=== PATIENT | female | born 1970 | race Caucasian/White ===

== ENCOUNTER 2020-06-02 15:53 | Emergency (ER) | payer OTHER, SELFPAY ==
[2020-06-02] VITALS (10 sets, daily range): BP systolic 107–160; BP diastolic 64–102; PULSE 65–98; RESP 16–30; TEMP 36.4–36.7; O2SAT 97–100
--- NOTE | ~2020-06-02 | XR_ITS ---
XR shoulder RT min 2V 06/02/2020 17:51 INDICATION: Shoulder dislocation post reduction PROCEDURE: His right shoulder COMPARISON: 06/02/2020 FINDINGS: Fracture, dislocation or subluxation is not identified. There is anatomic alignment post re duction. The soft tissues appear within normal limits. No foreign bodies are identified. IMPRESSION: 1: NO ACUTE BONE OR JOINT ABNORMALITY IDENTIFIED. Reviewed, dictated and finalized at location A.
--- NOTE | ~2020-06-02 | XR_ITS ---
EXAMINATION: XR shoulder RT min 2V DATE: 06/02/2020 16:08 INDICATION: Fall with right shoulder dislocation TECHNIQUE: AP and transscapular Y views of the right shoulder were obtained. COMPARISON: None FINDINGS: Anterior dislocation of the humeral head with respect to the glenoid. No evident fracture. Moderate a cromioclavicular osteoarthritis. Small amount of heterotopic ossification along the posterior rim of the acetabulum suggesting chronic labral degeneration. Visualized portions of the lungs are clear. IMPRESSION: Anterior right glenohumeral dislocation. Reviewed, dictated and finalized at location B.
--- NOTE | 2020-06-02 16:28 | ED.GENADULT ---
HPI - General Adult General Chief complaint: Extremity Injury, Upper Stated complaint: Fall Time Seen by Provider: 06/02/20 16:18 Source: patient History of Present Illness HPI narrative: Patient is a 50 y/o female complaining of right shoulder pain after a fall around 1:00 AM this morning. She states that she fell on gravel. She denies hitting her head or having LOC. She describes her pain as sharp and rates it as 10/10. Her pain radiates down upper arm to right elbow. She states that movement aggravates her pain. Related Data Home Medications Medication Instructions Recorded Confirmed alprazolam 06/02/20 06/02/20 fluoxetine mg 06/02/20 hydrocodone-acetaminophen 06/02/20 ibuprofen 06/02/20 omeprazole 06/02/20 ropinirole mg 06/02/20 simvastatin mg 06/02/20 Allergies Allergy/AdvReac Type Severity Reaction Status Date / Time tramadol Allergy Unknown Nausea and Verified 06/02/20 17:29 Vomiting TRAMADOL HCL Allergy Nausea Uncoded 06/02/20 17:29 Review of Systems Constitutional: Constitutional: Denies chills, Denies fever(s), Denies headache(s) and Denies weakness Eyes: Eyes: Denies blurry vision ENT: Denies headache(s) and Denies neck pain Cardiovascular: Cardiovascular: Denies chest pain and Denies dyspnea Respiratory: Respiratory: Denies cough and Denies dyspnea Gastrointestinal: Gastrointestinal: Denies abdominal pain, Denies diarrhea, Denies nausea and Denies vomiting Genitourinary: Genitourinary: Denies hematuria and Denies dysuria Musculoskeletal: Musculoskeletal: Denies back pain, Reports arthralgias (right shoulder pain) and Denies neck pain Neurologic: Denies headache(s) and Denies weakness [facility] Family History Family History Father Hypertension Family history of coronary artery disease Other Diabetes mellitus Family history of attention deficit hyperactivity disorder (ADHD) Social History Social History Alcohol intake: never Gender identity (if verbalized by the patient): Female Exam Const: General: no acute distress and well developed Orientation/consciousness: oriented to person, oriented to place, oriented to time and patient oriented x3 HENMT: Head: normocephalic Ears: external ears normal General nose exam: Normal external nose present Eyes: General: appearance normal, both eyes and all related structures Conjunctivae: conjunctivae normal Neck: Neck: normal visual inspection and full ROM Chest: Chest palpation & inspection: normal inspection of the chest and no tenderness Resp: Effort & Inspection: normal respiratory effort Auscultation: clear to auscultation bilaterally Cardio: Rate: regular rate Rhythm: regular rhythm GI: GI Palp: No abdominal tenderness and Yes Soft to palpation Skin: General skin exam: normal color and turgor normal Neuro: General: oriented to person, oriented to place, oriented to time and patient oriented x3 Cognition (Neuro): normal cognition Extrem: General: normal to inspection, full ROM and no pedal edema Right upper extremity: shoulder/upper arm tenderness, abnormal ROM and deformity Psych: Appearance: grossly normal Mental Status: mental status grossly normal Affect: normal affect Course Vital Signs Vital signs: Vital Signs Temperature 36.4 C L 06/02/20 15:59 Pulse Rate 98 06/02/20 15:59 Respiratory Rate 17 06/02/20 15:59 Blood Pressure 148/102 H 06/02/20 15:59 Pulse Oximetry 100 06/02/20 15:59 Temperature 36.7 C 06/02/20 18:25 Pulse Rate 73 06/02/20 18:25 Respiratory Rate 18 06/02/20 18:25 Blood Pressure 147/91 H 06/02/20 18:25 Pulse Oximetry 98 06/02/20 18:25 Procedures Orthopedic Joint Reduction Joint #1: Orthopedic Joint Reduction Date: 06/02/20 Time Out Performed: Yes Side: right Joint Reduction Location: shoulder Analgesia: p
[2020-06-02] MEDS: fentaNYL CITRATE INJ (*CRX) 100 MCG/2 ML VIAL 50 MCG IV PUSH (17:30)
[2020-06-02] MEDS: PROPOFOL IV EMULSION 200 MG/20 ML VIAL (17:40)
[2020-06-02] MEDS: PROPOFOL IV EMULSION 200 MG/20 ML VIAL 50 MG IV PUSH (17:45)
[2020-06-02] MEDS: SODIUM CHLORIDE 0.9% IV 1,000 ML 1000 ML (18:32)
== END 2020-06-02 19:11 | disposition home or self-care (01) ==
PROVIDERS: Emergency Provider Emergency Medicine
DX: S43.014A Anterior dislocation of right humerus, initial encounter (principal); W18.39XA Other fall on same level, initial encounter
CPT/HCPCS: 23650; 73030; 96374; 99285; J2704; J3010; J7030